=== PATIENT | male | born 1985 | race Caucasian/White ===

== ENCOUNTER 2025-06-11 18:55 | Inpatient (IN) | payer MEDICAID ==
[~2025-06-11] VITALS: Ht 170.2 cm; Wt 79.9 kg
[2025-06-11 18:58] VITALS: O2SAT 100
[2025-06-11] MEDS: SODIUM CHLORIDE 0.9% 1,000 ML IV ONE ×2 (20:07→23:00)
[2025-06-11 20:12] LABS: BASOPHILS % 0.2 % (0.0-2.0); EOSINOPHILS % 0.0 % (0.0-5.0); HEMATOCRIT. 47.9 % (42.0-52.0); HEMOGLOBIN. 16.0 g/dL (14.0-18.0); LYMPHOCYTES % 4.7 % (20.0-50.0); MEAN PLATELET VOLUME 8.5 fl (7.4-10.4); MONOCYTES % 5.2 % (2.0-8.0); NEUTROPHILS % 89.9 % (40.0-76.0); PLATELET 198 x1000/uL (130-400); RED BLOOD CELL COUNT 5.18 mill/uL (4.7-6.1); RED CELL DISTRIBUTION WIDTH 12.9 % (11.6-14.6)
[2025-06-11 20:15] LABS: COLOR URINE DARK YELLOW (YELLOW); GLUCOSE URINE NEGATIVE (NEGATIVE); KETONES URINE NEGATIVE (NEGATIVE); LEUKOCYTE ESTERASE URINE NEGATIVE (NEGATIVE); NITRITE URINE NEGATIVE (NEGATIVE); OCCULT BLOOD URINE 3+ (NEGATIVE); PH URINE 5.5 (4.5-8.0); PROTEIN URINE 2+ (NEGATIVE); SPECIFIC GRAVITY URINE 1.024 (1.005-1.030); UROBILINOGEN URINE 1.0 E.U./dL (0.2-1.0)
[2025-06-11 20:25] LABS: *AMPHETAMINES SCREEN URINE PRESUMPTIVE POSITIVE (NEGATIVE); *BARBITURATES SCREEN URINE NEGATIVE (NEGATIVE); *BENZODIAZEPINES SCREEN URINE NEGATIVE (NEGATIVE); *COCAINE SCREEN URINE NEGATIVE (NEGATIVE)
[2025-06-11 20:26] LABS: CANNABINOID URINE SCREEN NEGATIVE (NEGATIVE); ECSTASY MDMA SCREEN URINE CONF.TEST INDICATED (NEGATIVE); METHADONE URINE SCREEN NEGATIVE (NEGATIVE); OPIATES URINE SCREEN NEGATIVE (NEGATIVE); PHENCYCLIDINE URINE SCREEN NEGATIVE (NEGATIVE)
[2025-06-11 20:38] LABS: CLARITY URINE HAZY (CLEAR)
[2025-06-11 20:40] LABS: RBC URINE 0-2 /hpf (0-2); SQUAMOUS EPITHELIAL CELL URINE RARE /lpf (RARE/1+); WBC URINE 0-2 /hpf (0-2)
[2025-06-11 20:41] LABS: BACTERIA URINE TRACE; HYALINE CASTS URINE 0-5 /lpf; MUCUS URINE 1+ /lpf (NONE/TRACE)
[2025-06-11 21:29] LABS: TROPONIN I HIGH SENSITIVITY 437 ng/L (3.0-53)
[2025-06-11 21:43] LABS: CREATININE 2.0 mg/dL (0.6-1.3)
[2025-06-11 21:44] LABS: UREA NITROGEN BLOOD 20 mg/dL (9-23)
[2025-06-11 21:45] LABS: ASPARTATE AMINOTRANSFERASE 234 IU/L (<34)
[2025-06-11 21:46] LABS: BILIRUBIN DIRECT 0.1 mg/dL (<=3.0); BILIRUBIN TOTAL 0.4 mg/dL (0.1-1.0); PROTEIN TOTAL 8.1 g/dL (6.0-8.3)
[2025-06-12] VITALS: BP 120/92; PULSE 112; RESP 18; TEMP 37.0852
[2025-06-12 00:01] LABS: TROPONIN I HIGH SENSITIVITY 676 ng/L (3.0-53)
[2025-06-12 04:00] VITALS: BP 121/80; PULSE 91; RESP 18; TEMP 36.7; O2SAT 100
[2025-06-12 06:19] LABS: BASOPHILS % 0.1 % (0.0-2.0); EOSINOPHILS % 0.4 % (0.0-5.0); HEMATOCRIT. 43.9 % (42.0-52.0); HEMOGLOBIN. 14.8 g/dL (14.0-18.0); LYMPHOCYTES % 13.9 % (20.0-50.0); MEAN PLATELET VOLUME 7.9 fl (7.4-10.4); MONOCYTES % 7.8 % (2.0-8.0); NEUTROPHILS % 77.8 % (40.0-76.0); PLATELET 161 x1000/uL (130-400); RED BLOOD CELL COUNT 4.75 mill/uL (4.7-6.1); RED CELL DISTRIBUTION WIDTH 13.1 % (11.6-14.6)
[2025-06-12 06:24] LABS: CREATININE 1.2 mg/dL (0.6-1.3)
[2025-06-12 06:25] LABS: UREA NITROGEN BLOOD 14 mg/dL (9-23)
[2025-06-12 08:00] VITALS: BP 111/76; PULSE 97; RESP 18; TEMP 36.3; O2SAT 97
[2025-06-12 12:00] VITALS: BP 115/80; PULSE 97; RESP 18; TEMP 36.4; O2SAT 98
[2025-06-12 16:00] VITALS: BP 120/85; PULSE 92; RESP 20; TEMP 36.4; O2SAT 100
[2025-06-12] MEDS: SODIUM CHLORIDE 0.9% 1,000 ML IV SCH (19:07)
[2025-06-12 20:00] VITALS: BP 118/75; PULSE 105; RESP 20; TEMP 37.1; O2SAT 99
[2025-06-13] VITALS (7 sets, daily range): BP systolic 105–122; BP diastolic 61–83; PULSE 77–100; RESP 18–20; TEMP 36.4–37; O2SAT 96–99
[2025-06-13] MEDS: ACETAMINOPHEN 325MG TABLET PO PRN (02:29)
[2025-06-14 00:20] VITALS: BP 113/70; PULSE 78; RESP 20; TEMP 36.6; O2SAT 98
[2025-06-14 04:00] VITALS: BP 127/88; PULSE 76; RESP 20; TEMP 36.8; O2SAT 97
[2025-06-14 08:00] VITALS: BP 147/78; PULSE 76; RESP 22; TEMP 36.7; O2SAT 100
[2025-06-14 12:00] VITALS: BP 138/86; PULSE 86; RESP 20; TEMP 36.1; O2SAT 96
[2025-06-14 16:00] VITALS: BP 124/86; PULSE 81; RESP 18; TEMP 36.6; O2SAT 97
[2025-06-14 20:00] VITALS: BP 127/80; PULSE 92; RESP 18; TEMP 36.6; O2SAT 98
[2025-06-15] VITALS: BP 117/80; PULSE 96; RESP 18; TEMP 36.5; O2SAT 98
[2025-06-15 04:00] VITALS: BP 111/71; PULSE 98; RESP 19; TEMP 36.3; O2SAT 99
[2025-06-15 08:00] VITALS: BP 122/66; PULSE 100; RESP 20; TEMP 36.2; O2SAT 100
[2025-06-15] MEDS: SODIUM CHLORIDE 0.45% 1,000 ML IV SCH (10:30)
[2025-06-15 12:00] VITALS: BP 118/72; PULSE 92; RESP 18; TEMP 36.4; O2SAT 100
[2025-06-15 16:00] VITALS: BP 111/65; PULSE 84; RESP 18; TEMP 36.4; O2SAT 100
[2025-06-15 20:00] VITALS: BP 122/70; PULSE 84; RESP 18; TEMP 36.8; O2SAT 100
[2025-06-16] VITALS: BP 128/82; PULSE 78; RESP 20; TEMP 36.6; O2SAT 100
[2025-06-16 03:38] VITALS: BP 132/78; PULSE 80; RESP 18; TEMP 36.8; O2SAT 100
[2025-06-16 08:00] VITALS: BP 100/60; PULSE 93; RESP 20; TEMP 36.6; O2SAT 99
[2025-06-16 09:09] VITALS: BP 100/60; PULSE 93; RESP 20; TEMP 36.6; O2SAT 99
[2025-06-16 12:09] LABS: BASOPHILS % 0.4 % (0.0-2.0); EOSINOPHILS % 2.4 % (0.0-5.0); HEMATOCRIT. 42.1 % (42.0-52.0); HEMOGLOBIN. 14.5 g/dL (14.0-18.0); LYMPHOCYTES % 21.1 % (20.0-50.0); MEAN PLATELET VOLUME 7.8 fl (7.4-10.4); MONOCYTES % 8.7 % (2.0-8.0); NEUTROPHILS % 67.4 % (40.0-76.0); PLATELET 214 x1000/uL (130-400); RED BLOOD CELL COUNT 4.65 mill/uL (4.7-6.1); RED CELL DISTRIBUTION WIDTH 12.5 % (11.6-14.6)
[2025-06-16 12:25] VITALS: BP 97/52; PULSE 92; RESP 20; TEMP 37.2; O2SAT 98
[2025-06-16 12:33] LABS: CREATININE 0.9 mg/dL (0.6-1.3); UREA NITROGEN BLOOD 13 mg/dL (9-23)
[2025-06-16 12:35] LABS: PHOSPHORUS 2.4 mg/dL (2.5-4.9)
== END 2025-06-16 11:45 | disposition left against medical advice (07) | DRG 812 ==
LOC: ER 18:55 → EDBEDREQTM 22:20 → EDBEDREQ 22:20 → EDBEDREQSVC 22:20 → ENRESERV 23:17 → 7WST 23:46
PROVIDERS: ADMIT Internal Medicine; ATTEND Internal Medicine
DX: T40.411A Poisoning by fentanyl or fentanyl analogs, accidental (unintentional), initial encounter (principal); N17.0 Acute kidney failure with tubular necrosis; M62.82 Rhabdomyolysis; F17.210 Nicotine dependence, cigarettes, uncomplicated; Z78.1 Physical restraint status; Y92.89 Other specified places as the place of occurrence of the external cause; Z53.29 Procedure and treatment not carried out because of patient's decision for other reasons
CPT/HCPCS: 36415; 80048; 80076; 80305; 80320; 81003; 82550; 83605; 83735; 84100; 84484; 85025; 93005; 96360; 99291; J7030; G0480